=== PATIENT | male | born 1960 | race Caucasian/White ===

== ENCOUNTER 2020-10-02 00:43 | Emergency (ER) | payer OTHER ==
[~2020-10-02] VITALS: Ht 175.3 cm; Wt 111.4 kg
[2020-10-02 00:46] VITALS: BP 157/93
[2020-10-02] MEDS ORDERED: IBUPROFEN 200 MG TABLET PO ONE (01:30)
[2020-10-02] MEDS ORDERED: IBUPROFEN 200 MG TABLET ONE (01:48)
--- NOTE | 2020-10-02 02:00 | NUR ---
pt given medication and ice pack to left knee, pt had xray. pt resting on gurney, denies needs at this time.
--- NOTE | 2020-10-02 03:21 | NUR ---
Patient given discharge instructions and they have confirmed that they understand the instructions. Patient ambulatory with steady gait.
== END 2020-10-02 03:23 | disposition home or self-care (01) ==
LOC: ED 03:22
DX: S89.92XA Unspecified injury of left lower leg, initial encounter (principal); I10 Essential (primary) hypertension; W18.30XA Fall on same level, unspecified, initial encounter; Y93.89 Activity, other specified; Y92.69 Other specified industrial and construction area as the place of occurrence of the external cause; Y99.0 Civilian activity done for income or pay
CPT/HCPCS: 29505; 99283